=== PATIENT | female | born 1955 | race Caucasian/White ===

== ENCOUNTER 2023-04-02 11:25 | Day surgery (SDC) | payer BC, MEDICARE ==
[~2023-04-02 11:25] MED LIST: Cefuroxime 10 MG/ML SYRINGE EYERT SCH; Lidocaine 1% PF 2 ML SDV INJECT SCH; Pilocarpine 4% Ophth Soln 15 ML Bot EYERT SCH
[2023-04-02] MEDS: Polymyxin B/Trimethoprim 10 ML Bottle EYERT SCH ×3 (12:32→14:09)
[2023-04-02] MEDS: Brimonidine 0.2% Ophth Soln 15 ML Bottle EYERT SCH ×3 (12:37→14:09)
[2023-04-02] MEDS: Phenylephrine 2.5% Ophth Soln 2 ML Bot EYERT SCH ×5 (12:42→13:50)
[2023-04-02] MEDS: Tropicamide 1% Ophth Soln 15 ML Bottle EYERT SCH ×3 (12:47→13:07)
[2023-04-02] MEDS: Tetracaine HCl/PF 0.5% 4 ML Bottle EYEBOTH SCH ×4 (13:38→13:59)
== END 2023-04-02 14:18 | disposition home or self-care (01) ==
LOC: JD.SDS 11:25
PROVIDERS: ATTEND Ophthalmology
DX: H25.813 Combined forms of age-related cataract, bilateral (principal); F17.210 Nicotine dependence, cigarettes, uncomplicated; Z85.3 Personal history of malignant neoplasm of breast; Z83.518 Family history of other specified eye disorder; Z79.82 Long term (current) use of aspirin; Z79.899 Other long term (current) drug therapy
CPT/HCPCS: 66984; A9270; J0697; V2788; 00142; J3490